=== PATIENT | female | born 1960 | race Caucasian/White ===

== ENCOUNTER 2016-12-26 19:28 | Emergency (ER) | payer MEDICAID ==
[2016-12-26 20:28] VITALS: BP 104/86
--- NOTE | 2016-12-26 20:50 | EDM.PDOC ---
ED HPI GI/ABDOMINAL - General Chief Complaint: Abdominal Pain Stated Complaint: abdominal pain Time Seen by Provider: 12/26/16 20:23 Source of Information: Reports: Patient, RN, RN notes reviewed History Limitations: Reports: No limitations - History of Present Illness INITIAL COMMENTS - FREE TEXT/NARRATIVE: Patient presents emergency room at [facility] with a one-day history of central abdominal pain. Patient states she's not sure why she is having the pain. The patient is questioning whether or not she may have eaten some undercooked foods. The patient states that she did vomit 3 times today. The patient complains of severe nausea. The patient has a urostomy and colostomy in place. The patient states she has been voiding normal amounts of stool. She states there has been some green discharge in her colostomy bag. The patient states her urine output is marginal secondary to chronic kidney disease. Symptom Onset Date: 12/25/16 Timing/Duration: Reports: Getting worse Location: periumbilical Quality: Reports: throbbing Severity: moderate Improves with: Reports: lying down Worsens with: Reports: defecating, urinating, palpation Context: Reports: bad/questionable food. Denies: sick contact, out of country travel, recent surgery, recent trauma Associated Symptoms (-Female): Reports: loss of appetite, nausea/vomiting. Denies: bloody stools - Related Data Allergies/ADRs: Allergies Allergy/AdvReac Type Severity Reaction Status Date / Time ciprofloxacin [From Cipro] Allergy Hives Verified 12/26/16 20:24 ciprofloxacin HCl Allergy Hives Verified 12/26/16 20:24 [From Cipro] codeine AdvReac Vomiting Verified 12/26/16 20:24 hydrocodone AdvReac Vomiting Verified 12/26/16 20:24 Home Meds: Home Meds Aspirin 81 mg PO DAILY 10/19/13 [History] Loratadine [Claritin RediTabs] 10 mg PO DAILY 10/19/13 [History] Omeprazole 20 mg PO BID 10/19/13 [History] Sertraline [Zoloft] 100 mg PO DAILY 03/06/14 [History] Montelukast [Singulair] 10 mg PO DAILY PRN 06/01/14 [History] Sennosides/Docusate Sodium [Stool Softener] 1 each PO Q48H 11/27/14 [History] Past Medical History HEENT History: Reports: Other (see below) Other HEENT History: seasonal allergies Genitourinary History: Reports: Other (see below) Other Genitourinary History: ilial loop, stage 4 kidney disease Other OB/BYN History: hysterectomy Musculoskeletal History: Reports: Arthritis, Back pain, chronic Psychiatric History: Reports: Depression Oncologic (Cancer) History: Reports: Cervix Dermatologic History: Reports: Eczema, Other (see below) Other Dermatologic History: winter - Past Surgical History GI Surgical History: Reports: Appendectomy, Cholecystectomy, Colostomy Other GI Surgeries/Procedures: Ileostomy Female Surgical History: Reports: Hysterectomy, Other (see below) Other Female Surgeries/Procedures: bladder removed Social & Family History - Tobacco Use Smoking Status *Q: Former Smoker Years of Tobacco use: 47 Packs/Tins Daily: 1 Used Tobacco, but Quit: Yes Month Tobacco Last Used: 70 Second Hand Smoke Exposure: No - Alcohol Use Days Per Week of Alcohol Use: 0 - Recreational Drug Use Recreational Drug Use: No ED ROS GENERAL - Review of Systems Review Of Systems: See Below Constitutional: Denies: fever, chills, weakness Respiratory: Denies: Shortness of Breath, Cough Cardiovascular: Denies: Chest pain, Palpitations GI/Abdominal: Reports: Abdominal pain, Decreased appetite, Nausea, Vomiting. Denies: Black stool, Bloody stool, Diarrhea Skin: Reports: no symptoms Neurological: Denies: Dizziness, Headache ED EXAM, GI/ABD - Physical Exam Exam: See Below Exam Limited By: No limitations General Appearance: alert, mild distress, cachetic Respiratory/Chest: no respiratory distress, lungs clear, normal breath sounds Cardiovascular: regular rate, rhythm GI/Abdominal: hypoactive bowel sounds, tenderness, guarding, other (Urostomy and Colostomy in place) Neurological: alert, oriented Skin Exam: Warm, Dry, Intact, Normal color, No rash Course - Vital Signs Last Recorded V/S: Last Vital Signs Temp 36.8 C 12/26/16 20:25 Pulse 122 H 12/26/16 20:25 Resp 20 12/26/16 20:25 BP 104/86 12/26/16 20:25 Pulse Ox 96 12/26/16 20:25 - Orders/Labs/Meds Orders: Active Orders 24 hr Category Date Time Status Abdomen Pelvis wo Cont [CT] Stat Exams 12/26/16 20:48 Taken Sodium Chloride 0.9% [Normal Saline] 1,000 ml Med 12/26/16 21:15 Active IV ASDIRECTED Sodium Chloride 0.9% [Saline Flush] Med 12/26/16 21:07 Active 10 ml FLUSH ASDIRECTED PRN Peripheral IV Insertion Adult [OM.PC] Routine Oth 12/26/16 21:07 Ordered Medication Orders Sodium Chloride (Normal Saline) 1,000 mls @ 999 mls/hr IV ASDIRECTED BLESSING Last Admin: 12/26/16 21:19 Dose: 999 mls/hr Sodium Chloride (Saline Flush) 10 ml FLUSH ASDIRECTED PRN PRN Reason: Keep Vein Open Labs: Laboratory Tests 12/26/16 12/26/16 12/26/16 Range/Units 21:10 21:10 21:10 WBC 9.3 (4.0-10.0) x10^3/uL RBC 4.05 (4.00-5.50) x10^6/uL Hgb 12.0 (12.0-16.0) g/dL Hct 35.8 (33.0-47.0) % MCV 88.4 (78.0-93.0) fL MCH 29.6 (26.0-32.0) pg MCHC 33.5 (32.0-36.0) g/dL RDW Coeff of Donna 14.8 (10.0-15.0) % Plt Count 286 (130-400) x10^3/uL Neut % (Auto) 91.4 H (50.0-80.0) % Lymph % (Auto) 4.3 L (25.0-50.0) % Villalba % (Auto) 4.1 (2.0-11.0) % Eos % (Auto) 0.1 (0.0-4.0) % Baso % (Auto) 0.1 L (0.2-1.2) % Sodium 142 (136-145) mmol/L Potassium 4.2 (3.5-5.1) mmol/L Chloride 108 H (98-107) mmol/L Carbon Dioxide 16 L (21-32) mmol/L BUN 30 H (7-18) mg/dL Creatinine 2.7 H (0.55-1.02) mg/dL Est Cr Clr Drug Dosing 20.44 mL/min Estimated GFR (MDRD) 18 Glucose 120 H (74-106) mg/dL Lactic Acid 1.4 (0.4-2.0) mmol/L Calcium 8.4 L (8.5-10.1) mg/dL Corrected Calcium 9.36 (8.5-10.1) mg/dL Total Bilirubin 0.3 (0.2-1.0) mg/dL AST 12 L (15-37) U/L ALT 15 (14-59) U/L Alkaline Phosphatase 220 H (46-116) U/L C-Reactive Protein 0.3 (<=0.9) mg/dL Total Protein 6.8 (6.4-8.2) g/dL Albumin 2.8 L (3.4-5.0) g/dL Globulin 4.0 Albumin/Globulin Ratio 0.70 Amylase 102 (25-115) U/L Lipase 167 (73-393) U/L Meds: Medications Generic Name Dose Route Start Last Admin Trade Name Freq PRN Reason Stop Dose Admin Sodium Chloride 1,000 mls @ 999 mls/hr 12/26/16 21:15 12/26/16 21:19 Normal Saline IV 999 mls/hr ASDIRECTED BLESSING Administration Sodium Chloride 10 ml 12/26/16 21:07 Saline Flush FLUSH ASDIRECTED PRN Keep Vein Open Discontinued Medications Generic Name Dose Route Start Last Admin Trade Name Freq PRN Reason Stop Dose Admin Ondansetron HCl 4 mg 12/26/16 21:07 12/26/16 21:20 Zofran IVPUSH 12/26/16 21:08 4 mg ONETIME ONE Administration - Radiology Interpretation Free Text/Narrative:: See scanned report in EMR CT discussed with Dr. Shant Robles, Radiology CT Results Date: 12/26/16 CT Results Time: 21:29 Departure - Departure Time of Disposition: 21:52 Disposition: Home, Self-Care 01 Condition: good Clinical Impression: Viral gastroenteritis, Food aversion Abdominal pain Qualifiers: Abdominal location: periumbilical Qualified Code(s): R10.33 - Periumbilical pain Instructions: Viral Gastroenteritis, Adult, [id number], Abdominal Pain, Adult , [id number] Referrals: Beto Briggs MD [Primary Care Provider] - Forms: ED Department Discharge Additional Instructions: 1. Stay well hydrated and rest 2. Recommend a bland diet over the next few days 3. Use nausea medication as directed 4. See your Primary as symptoms warrant 5. May use Tylenol for any discomfort - Problem List Review Problem List Initiated/Reviewed/Updated: Yes - My Orders Last 24 Hours: My Active Orders 12/26/16 20:48 Abdomen Pelvis wo Cont [CT] Stat 12/26/16 21:07 Sodium Chloride 0.9% [Saline Flush] 10 ml FLUSH ASDIRECTED PRN Peripheral IV Insertion Adult [OM.PC] Routine 12/26/16 21:15 Sodium Chloride 0.9% [Normal Saline] 1,000 ml IV ASDIRECTED - Assessment/Plan Last 24 Hours: My Active Orders 12/26/16 20:48 Abdomen Pelvis wo Cont [CT] Stat 12/26/16 21:07 Sodium Chloride 0.9% [Saline Flush] 10 ml FLUSH ASDIRECTED PRN Peripheral IV Insertion Adult [OM.PC] Routine 12/26/16 21:15 Sodium Chloride 0.9% [Normal Saline] 1,000 ml IV ASDIRECTED
[2016-12-26] MEDS ORDERED: Ondansetron 4 MG/2 ML SDV IVPUSH ONE (21:07)
[2016-12-26] MEDS ORDERED: Sodium Chloride 0.9% 10 ML Syringe FLUSH PRN (21:07)
[2016-12-26] MEDS ORDERED: Sodium Chloride 0.9% 1,000 ML IV SCH (21:15)
[2016-12-26] MEDS ORDERED: Take Home: Ondansetron 4 MG Tab.DIS, 2 Tab Pack PO ONE (21:54)
== END 2016-12-26 22:20 | disposition home or self-care (01) ==
LOC: VM.ED 19:28
DX: A08.4 Viral intestinal infection, unspecified (principal); R63.3 Feeding difficulties; R10.33 Periumbilical pain; F32.9 Major depressive disorder, single episode, unspecified; Z79.82 Long term (current) use of aspirin; Z79.899 Other long term (current) drug therapy; Z88.1 Allergy status to other antibiotic agents; Z88.5 Allergy status to narcotic agent; Z85.41 Personal history of malignant neoplasm of cervix uteri; Z87.891 Personal history of nicotine dependence; Z90.49 Acquired absence of other specified parts of digestive tract; Z90.710 Acquired absence of both cervix and uterus; Z98.890 Other specified postprocedural states
CPT/HCPCS: 36415; 74176; 80053; 82150; 83605; 83690; 85025; 86140; 96361; 96374; 99284; A9270; J2405; J7030

== ENCOUNTER 2017-04-29 12:02 | Emergency (ER) | payer MEDICAID ==
[2017-04-29] MEDS ORDERED: HYDROmorphone 1 MG/ML Syringe IVPUSH ONE (12:46)
[2017-04-29 12:48] VITALS: BP 96/68
[2017-04-29] MEDS ORDERED: Take Home: Acetaminophen/oxyCODONE 325-5 MG, 5 Tab Pack PO ONE (13:56)
[2017-04-29] MEDS ORDERED: Take Home: Ondansetron 4 MG Tab.DIS, 2 Tab Pack PO ONE (13:57)
--- NOTE | 2017-04-30 00:40 | ER ---
Date of Service: 04/29/2017 SUBJECTIVE: Stephany presents to the emergency room with episode of vomiting and stomach upset. The patient does have end-stage renal disease and has decided not to undergo dialysis due to complications with her fistula placement and other family and medical issues. She has discussed with her primary care provider, Dr. Briggs, the possibility of starting hospice. The patient takes tramadol and Tylenol and stated that she woke up this morning with severe acute on chronic mid to low back pain. She states that she took a tramadol and some Tylenol and stated that shortly thereafter, became severely nauseated and did vomit. Her family insisted that she be brought immediately to the emergency room for evaluation and treatment. She states that this is the only episode of vomiting that she has experienced today. PAST MEDICAL HISTORY: 1. End-stage renal disease. 2. Depression. 3. Anxiety. 4. Asthma. 5. GERD. 6. Diverticulitis. MEDICATIONS: 1. Omeprazole. 2. Stool softener. 3. Zoloft. 4. Singulair. 5. Claritin. 6. Aspirin. 7. Tramadol. 8. Tylenol. ALLERGIES: Cipro, codeine, and hydrocodone. REVIEW OF SYSTEMS: General: No fever or chills. HEENT: No sore throat, rhinorrhea, or congestion. Respiratory: No shortness of breath. Cardiac: Denies any substernal chest pain. No jaw, arm, neck, or back pain. GI: Positive for nausea and vomiting. No melena, hematochezia, or hematemesis. : Denies any dysuria. Musculoskeletal: No myalgias or arthralgias. She does have acute on chronic mid to low back pain caused by her kidney disease. Neurologic: The patient is alert and oriented. Answers all questions appropriately. Her speech is fluent. Does not appear to be in any neurologic distress. PHYSICAL EXAMINATION: General: This is a 56-year-old female, who is in moderate amount of distress. Vital Signs: Blood pressure is 96/68, heart rate is 78, temperature is 36.9, respiratory rate 16, and O2 saturations 99%. Skin: Warm, pink, and dry. HEENT: Head is normocephalic, atraumatic. Eyes, PERRLA. Extraocular movements are intact. Mouth, oral mucosa is moist. Lungs: Clear to auscultation. Heart: Regular rate and rhythm. Normal S1, S2. No S3, S4, murmurs, clicks, or rubs. Abdomen: Soft, nontender. There is no hepatosplenomegaly or masses noted. Extremities: Without edema. Neurologic: She is alert and oriented. Answers all questions appropriately. Her speech is fluent. Her gait is within normal limits. LABORATORY DATA: Sodium is 138, potassium is 3.4, chloride is 106, bicarb is 17, BUN is 58, creatinine is 4.4, creatinine clearance is 12.54, GFR is 10, glucose is 83, calcium is 5.4, corrected calcium is 7.08, phos is 6.5, and albumin is 1.9. EMERGENCY ROOM COURSE: The patient was given a 500 mL bolus of normal saline. She was given a 0.5 mg of Dilaudid IV and Zofran 4 mg IV for nausea via EMS. She reported feeling much better and wished to be discharged. ASSESSMENT: End-stage renal disease. PLAN: The patient will be discharged. I did discuss the findings at length with the patient. She was given information on Home Health as well as hospice if she does choose to use their services. I did discuss the pathophysiology of end-stage renal disease and hemodialysis versus peritoneal dialysis and the benefits of both versus not doing either of these modalities. All questions were answered. She will return if she develops any worsening discomfort, recurrent nausea or vomiting, or worsening pain. All questions were answered. MWK: 04/29/2017 20:30:01 MODL: 04/30/2017 00:35:00 /[id number]
== END 2017-04-29 14:10 | disposition home or self-care (01) ==
LOC: VM.ED 12:02
DX: N18.6 End stage renal disease (principal); F32.9 Major depressive disorder, single episode, unspecified; F41.9 Anxiety disorder, unspecified; J45.909 Unspecified asthma, uncomplicated; K21.9 Gastro-esophageal reflux disease without esophagitis; Z88.5 Allergy status to narcotic agent; Z88.8 Allergy status to other drugs, medicaments and biological substances; Z79.82 Long term (current) use of aspirin
CPT/HCPCS: 36415; 80069; 96374; 99284; A9270; J1170

== ENCOUNTER 2017-05-12 10:00 | Inpatient (IN) | payer MEDICAID, OTHER ==
[2017-05-12] MEDS: Morphine 2 MG/ML Syringe SUBCUT PRN ×2 (11:18→12:03)
[2017-05-12] MEDS ORDERED: Atropine 1% Ophth Soln 5 ML BOTTLE SL PRN (11:32)
[2017-05-12 11:55] VITALS: BP 114/81
[2017-05-12] MEDS ORDERED: LORazepam 2 MG/ML SDV SUBCUT ONE (11:56)
[2017-05-12] MEDS: LORazepam 2 MG/ML SDV SUBCUT PRN ×4 (12:03→20:33)
[2017-05-12] MEDS: Morphine 2 MG/ML Syringe SUBCUT SCH ×2 (14:10→19:33)
[2017-05-12] MEDS ORDERED: Acetaminophen 650 MG Supp RECTAL PRN (17:50)
[2017-05-13] MEDS: Morphine 2 MG/ML Syringe SUBCUT SCH ×4 (02:03→20:03)
[2017-05-13] MEDS: LORazepam 2 MG/ML SDV SUBCUT PRN ×8 (02:05→20:04)
[2017-05-13] MEDS: Morphine 2 MG/ML Syringe SUBCUT PRN ×4 (11:52→18:44)
[2017-05-14] MEDS: LORazepam 2 MG/ML SDV SUBCUT PRN ×7 (00:18→22:54)
[2017-05-14] MEDS: Morphine 2 MG/ML Syringe SUBCUT PRN ×3 (00:23→22:53)
[2017-05-14] MEDS: Morphine 2 MG/ML Syringe SUBCUT SCH ×5 (01:57→20:06)
--- NOTE | 2017-05-14 19:59 | PCM.PN ---
- General Info Date of Service: 05/14/17 Admission Dx/Problem (Free Text): History: Since yesterday morning when she went on Swing Bed, after getting IV Compazine, Zofran, at about the time that her IV quit functioning she also stopped having severe nausea and vomiting. Since then her pain and agitation has been controlled with subcutaneous Ativan and morphine, plus rectal Tylenol p.r.n.. And she also gets sublingual atropine. With that she has been sleeping much of the time and many of her family members are present, and she is able to wake up and express herself sometimes. She had a particularly lively phone conversation with her son in [place]. She has little oral intake, continues to put out small amounts into her ileal urostomy and her colostomy, all quite foul smelling. No fever. She gets regular visits from [facility]. Family has the expected amount of distress and some conflict between the children, including one of the sons who wants to have lab, consider sending her home, suggesting the Hospice nurse isn t spending enough time there, but I had a discussion with him today and I think satisfied his concerns, advised him that lab is completely inappropriate, symptom control is paramount, she requires far too much nursing care now to be able to go home, and the hospice nurse is working with the hospital nurses and spends whatever time is necessary. Exam: Did not waken yesterday or this morning, lying flat without any respiratory distress, heart is regular. No dyspnea now. Impression: Terminal end-stage kidney disease Nausea and vomiting were uncontrolled, now OK Tetany from hypocalcemia, this even affected her respiratory muscles, but now seems controlled with adequate subcu morphine Pain seems controlled Plan: Continue present regimen Continue Hospice care, with emphasis only on symptom control - Patient Data Vitals - Most Recent: Last Vital Signs Temp 36.6 C 05/12/17 11:02 Pulse 133 H 05/12/17 11:02 Resp 8 L 05/12/17 11:02 BP 114/81 05/12/17 11:02 Pulse Ox 98 05/12/17 11:02 Weight - Most Recent: 60.328 kg Med Orders - Current: Current Medications Acetaminophen (Tylenol) 650 mg RECTAL Q4H PRN PRN Reason: Fever Atropine Sulfate (Atropine 1% Ophth Soln) 0 ml SL Q4H PRN PRN Reason: SECRETIONS Lorazepam (Ativan) 1 mg SUBCUT Q1H PRN PRN Reason: Anxiety Last Admin: 05/14/17 15:58 Dose: 1 mg Morphine Sulfate (Morphine) 2 mg SUBCUT Q30M PRN PRN Reason: Pain Last Admin: 05/14/17 03:59 Dose: 2 mg Morphine Sulfate (Morphine) 2 mg SUBCUT Q4H [facility] Last Admin: 05/14/17 16:01 Dose: 2 mg Discontinued Medications Lorazepam (Ativan) 1 mg SUBCUT Q3H PRN PRN Reason: Anxiety Last Admin: 05/12/17 20:33 Dose: 1 mg Lorazepam (Ativan) 1 mg SUBCUT ONETIME ONE Stop: 05/12/17 11:57 Last Admin: 05/12/17 12:02 Dose: 1 mg Morphine Sulfate (Morphine) 2 mg SUBCUT Q6H [facility] Last Admin: 05/14/17 07:52 Dose: 2 mg - Problem List Review Problem List Initiated/Reviewed/Updated: Yes - My Orders Last 24 Hours: My Active Orders 05/14/17 12:00 Morphine 2 mg SUBCUT Q4H
[2017-05-15] MEDS: Morphine 2 MG/ML Syringe SUBCUT SCH ×2 (00:08→04:04)
[2017-05-15] MEDS: LORazepam 2 MG/ML SDV SUBCUT PRN (04:03)
--- NOTE | 2017-05-16 11:59 | PCM.DCSUM1 ---
Discharge Summary - Hospital Course Free Text/Narrative:: Final diagnosis: End-stage renal disease Secondary Diagnoses: Muscle spasm and airway compromise secondary to hypocalcemia Nausea and vomiting secondary to uremia Peripheral vascular disease Hx cervical carcinoma with pelvic exenteration, colostomy, urostomy Multiple lung nodules, possibly related to long-term smoking Hyponatremia Hx GI bleed Painful DJD of knees Reason for Admission: See admit to Swing Bed 05/12/17. Terminal renal failure, elected to have no dialysis. Treatment and Course in Hospital: Admitted for symptom control because of severe pain and intractable nausea and vomiting, by the time to Swing Bed that was fairly well-controlled, with regular visits from [facility], IV Compazine ( Zogilberto seemed to have quit working), IV morphine, and after the IV was lost, subcutaneous morphine. This was used for the spells that she had of severe dyspnea, seemingly caused by chest muscle tetany because of her hypocalcemia, which also had caused some muscle spasms in her hands. Everything quite well under control by the time of T/F to Swing Bed and that regimen was continued. She slept most of the time, occasionally woke enough to speak a little bit and then slept again. In a.m. of 05/15/17 she with her family in attendance. - Discharge Data Discharge Date: 05/15/17 Discharge Disposition: 20 Condition: Good - Patient Summary/Data Consults: Consultations 05/12/17 11:25 Consult to Hospice [CONS] Routine - Discharge Plan - Patient Data Vitals - Most Recent: Last Vital Signs Temp 36.6 C 05/12/17 11:02 Pulse 133 H 05/12/17 11:02 Resp 8 L 05/12/17 11:02 BP 114/81 05/12/17 11:02 Pulse Ox 98 05/12/17 11:02 Weight - Most Recent: 60.328 kg Med Orders - Current: Current Medications Discontinued Medications Acetaminophen (Tylenol) 650 mg RECTAL Q4H PRN PRN Reason: Fever Atropine Sulfate (Atropine 1% Ophth Soln) 0 ml SL Q4H PRN PRN Reason: SECRETIONS Lorazepam (Ativan) 1 mg SUBCUT Q3H PRN PRN Reason: Anxiety Last Admin: 05/12/17 20:33 Dose: 1 mg Lorazepam (Ativan) 1 mg SUBCUT ONETIME ONE Stop: 05/12/17 11:57 Last Admin: 05/12/17 12:02 Dose: 1 mg Lorazepam (Ativan) 1 mg SUBCUT Q1H PRN PRN Reason: Anxiety Last Admin: 05/15/17 04:03 Dose: 1 mg Morphine Sulfate (Morphine) 2 mg SUBCUT Q30M PRN PRN Reason: Pain Last Admin: 05/14/17 22:53 Dose: 2 mg Morphine Sulfate (Morphine) 2 mg SUBCUT Q6H BLESSING Last Admin: 05/14/17 07:52 Dose: 2 mg Morphine Sulfate (Morphine) 2 mg SUBCUT Q4H BLESSING Last Admin: 05/15/17 04:04 Dose: 2 mg *Q Meaningful Use (DIS) - VTE *Q VTE Criteria *Q: - Stroke *Q Stroke Criteria *Q: - AMI *Q AMI Criteria *Q:
== END 2017-05-15 07:20 | disposition expired | DRG 683 ==
LOC: UNDOADMIN 10:00 → VM.MS 10:00 → UNDOADMIN 10:57 → VM.MS 10:57 → UNDODISIN 05-15 07:20
PROVIDERS: ADMIT Family Medicine; ATTEND Family Medicine
DX: N18.6 End stage renal disease (principal); R29.0 Tetany; E87.1 Hypo-osmolality and hyponatremia; R06.00 Dyspnea, unspecified; R53.1 Weakness; E83.51 Hypocalcemia; M62.838 Other muscle spasm; R11.2 Nausea with vomiting, unspecified; I73.9 Peripheral vascular disease, unspecified; R91.8 Other nonspecific abnormal finding of lung field; M17.0 Bilateral primary osteoarthritis of knee; Z85.41 Personal history of malignant neoplasm of cervix uteri; Z93.3 Colostomy status; Z93.50 Unspecified cystostomy status; F17.210 Nicotine dependence, cigarettes, uncomplicated; Z51.5 Encounter for palliative care
CPT/HCPCS: A9270-GY; J2060; J2270